=== PATIENT | female | born 1995 | race Caucasian/White ===

== ENCOUNTER 2017-12-10 10:26 | Emergency (ER) | payer OTHER ==
[2017-12-10 10:52] LABS: URINE HCG POC HCG NEGATIVE (Negative)
[2017-12-10 10:52] LABS: BILIRUBIN,URINE NEGATIVE (NEG); CLARITY,URINE CLEAR; COLOR,URINE YELLOW; GLUCOSE,URINE NEGATIVE (NEG); NITRITE,URINE NEGATIVE (NEG); PROTEIN,URINE 30 mg/dL (NEG-TRACE); UROBILINOGEN,URINE 0.2 mg/dL (0.2 mg/dL)
[2017-12-10] MEDS: ORPHENADRINE CITRATE 60 MG/2 ML VIAL. IM (11:06)
[2017-12-10] MEDS: PHENAZOPYRIDINE 200 MG TABLET. PO (11:06)
[2017-12-10] MEDS: KETOROLAC 60 MG/2 ML INJ. IM (11:07)
[2017-12-10 11:11] LABS: BACTERIA,URINE MODERATE /HPF (0-FEW); SQUAMOUS EPITHELIAL CELL,UR OCC /LPF; WBC,URINE >40 /HPF (0-4)
== END 2017-12-10 11:50 | disposition home or self-care (01) ==
LOC: ER 10:26
DX: S33.5XXA Sprain of ligaments of lumbar spine, initial encounter (principal); N30.00 Acute cystitis without hematuria; X58.XXXA Exposure to other specified factors, initial encounter; Y93.89 Activity, other specified; Y99.8 Other external cause status; Y92.89 Other specified places as the place of occurrence of the external cause
CPT/HCPCS: 81001; 81025; 87086; 87186; 96372; 99284; J1885; J2360